=== PATIENT | male | born 1970 | race Caucasian/White ===

== ENCOUNTER 2020-09-16 16:28 | Outpatient (REF) | payer MEDICARE, SELFPAY | END 2020-09-16 16:29 | disposition home or self-care (01) | LOC: HO.LAB 16:28 | PROVIDERS: Visit Provider Internal Medicine | DX: Z20.828 Contact with and (suspected) exposure to other viral communicable diseases (principal) | CPT/HCPCS: 36415; C9803; U0003 ==